=== PATIENT | female | born 1935 | race Caucasian/White ===

== ENCOUNTER 2017-01-24 09:59 | Emergency (ER) ==
[2017-01-24 10:08] VITALS: BP 185/81; TEMP 98.1; BMI 43.9
--- NOTE | 2017-01-24 11:44 | ED.PDOC ---
General ED Provider: Dr. VANESSA NEWTON JR Chief Complaint: Cough Stated Complaint: Productive cough clear sputum, trouble breathing especially during the night, no fever[End]one week 98.1 61 18 96% 185/81 Time Seen by Physician: 11:44 Mode of Arrival: Walk-In Information Source: Patient Exam Limitations: No limitations Nursing and Triage Documentation Reviewed and Agree: No Review of Systems - Review Of Systems Constitutional: Reports: Malaise Eyes: Reports: No symptoms Ears, Nose, Mouth, Throat: Reports: No symptoms Respiratory: Reports: Cough, Short of air Cardiac: Reports: No symptoms GI: Reports: No symptoms : Reports: No symptoms Musculoskeletal: Reports: No symptoms Skin: Reports: No symptoms Neurological: Reports: No symptoms Endocrine: Reports: No symptoms Hematologic/Lymphatic: Reports: No symptoms All Other Systems: Other Past Medical History - Past Medical History Endocrine: Reports: Hypothyroid, Dyslipidemia Cardiovascular: Reports: Hypertension Respiratory: Reports: None Hematological: Reports: None Gastrointestinal: Reports: None Genitourinary: Reports: None Neuro/Psych: Reports: None Musculoskeletal: Reports: Back Pain Cancer: Reports: None Last Menstrual Period: 1977 - Surgical History General Surgical History: Reports: Cholecystectomy, Back Surgery (back surgery 2010) - Family History Family History: Reports: Unknown - Social History Smoking Status: Never smoker Hx Substance Use: No Alcohol Screening: None - Immunizations Tetanus Shot up to Date: Yes (4 years prior) Physical Exam - Physical Exam Appearance: Ill-appearing Ill-appearing: Moderate Pain Distress: Moderate Eyes: AARON, EOMI, Conjunctiva clear ENT: Ears normal, Nose normal, Oropharynx normal Neck: Supple Respiratory: Airway patent, Breath sounds diminished, Crackles Cardiovascular: RRR, Pulses normal, No rub, No murmur GI/: Soft, Nontender, No masses, Bowel sounds normal, No Organomegaly Musculoskeletal: Normal strength, ROM intact, No edema, No calf tenderness Skin: Warm, Dry, Normal color Neurological: Sensation intact, Motor intact, Reflexes intact, Cranial nerves intact, Alert, Oriented Psychiatric: Affect appropriate, Mood appropriate Critical Care Note - Critical Care Note Total Time (mins): 0 Course - Course Orders, Labs, Meds: Orders Category Date Time Status CHEST, 2 VIEWS PA & LAT Stat RADS 01/24/17 11:53 Completed Vital Signs: Temp Pulse Resp BP Pulse Ox 01/24/17 10:00 98.1 F 61 18 185/81 H 96 Departure - Departure Time of Disposition: 12:21 Disposition: HOME SELF-CARE Discharge Problem: Cough Instructions: Upper Respiratory Infection (ED) Condition: Good Pt referred to PMD for follow-up: Yes Additional Instructions: crackles in right lung are not of concern on xray need to clear congestion Robitussin DM has guaifenasen and is recommended for four to five days an antihistamine such as claritin may also help an antibiotic is not recommended unless fever chills or weakness worsen Prescriptions: Guaifenesin/Dextromethorphan [Guaifenesin Dm Syrup] 10 ml PO QID PRN #120 ml PRN Reason: Cough Loratadine [Claritin] 10 mg PO DAILY PRN #30 tablet PRN Reason: Allergy Symptoms Allergies/Adverse Reactions: Allergies No Known Drug Allergies Adverse Reaction (Verified 01/24/17 10:08) Home Medications: Ambulatory Orders Guaifenesin/Dextromethorphan [Guaifenesin Dm Syrup] 10 ml PO QID PRN #120 ml 08/02 Hydrochlorothiazide 1 each PO DAILY 01/24/17 Hydrocodone Bit/Acetaminophen [[place] 5-325] 1 each PO DAILY 01/24/17 Levothyroxine Sodium [Synthroid] 75 mcg PO DAILY 01/24/17 Loratadine [Claritin] 10 mg PO DAILY PRN #30 tablet 01/24/17 Simvastatin 20 mg PO DAILY 01/24/17
--- NOTE | 2017-01-24 12:14 | DI ---
EXAM: Chest two views HISTORY: Cough right lower lobe crackles COMPARISON: None TECHNIQUE: Two views of the chest were performed FINDINGS: The lungs are clear. There is no pleural effusion or pneumothorax. The heart is normal in size. The mediastinal contour is normal, noting atherosclerosis. There are no acute abnormaliti es of the bones. IMPRESSION: No acute cardiopulmonary process.
== END 2017-01-24 12:35 | disposition home or self-care (01) ==
LOC: ED 09:59
DX: J06.9 Acute upper respiratory infection, unspecified (principal)
CPT/HCPCS: 99282